=== PATIENT | female | born 2000 | race Caucasian/White ===

== ENCOUNTER → 2021-04-26 | Outpatient (CLI) | payer BC ==
--- NOTE | 2021-04-26 08:47 | Diagnostic Imaging Report ---
INDICATION: Right upper quadrant abdominal pain Gallbladder sonography performed in a routine fashion. The liver shows normal echogenicity without focal lesion. Gallbladder is unremarkable with no stones or wall thickening. Common duct measured 3 mm. Portal vein is patent with hepatopedal flow. The pancreas appears unremarkable. The visualized portions of the aorta and IVC are normal. Right kidney measured 12.1 cm in length and showed no hydronephrosis or focal lesion. There is no ascites. IMPRESSION: Negative gallbladder sonography. Dictated by: Dictated on workstation # [id number]
== END ==
LOC: RAD 08:00
PROVIDERS: ATTEND Nurse Practitioner Family
DX: R10.11 Right upper quadrant pain (principal); R11.0 Nausea; M54.9 Dorsalgia, unspecified
CPT/HCPCS: 76705

== ENCOUNTER → 2021-08-29 | Outpatient (CLI) | payer BC ==
--- NOTE | 2021-08-29 14:11 | Diagnostic Imaging Report ---
INDICATION: Painful breathing. TIME OF EXAM: 1:46 p.m. COMPARISON: No prior studies are available for comparison. FINDINGS: The heart size is normal. Lungs are clear. No infiltrates are seen. There is no effusion or pneumothorax. IMPRESSION: No acute cardiopulmonary process is detected. Dictated by: Dictated on workstation # [id number]
== END ==
LOC: RAD 13:25
PROVIDERS: ATTEND Nurse Practitioner Family
DX: R07.81 Pleurodynia (principal); R07.89 Other chest pain; M41.9 Scoliosis, unspecified
CPT/HCPCS: 71046